=== PATIENT | female | born 1985 | race Caucasian/White ===

== ENCOUNTER → 2016-07-09 | Emergency (ER) | payer OTHER ==
--- NOTE | 2016-07-09 20:49 | ED NURSING NOTES ---
Clinical Report - Nurses [place] [address] [place] [address] 07/09/2016 19:32 Patient: ANGELICA DIEGO DISPOSITION / DISCHARGE ( multiple lobby checks, pt not found. chart found on medical receptionist biller counter.). --20:47 Emma Amanda R.N. The patient left the Emergency Department before triage. The patient did not notify the ED staff prior to leaving the department. --20:49 Emma Amanda R.N. Locked/Released at 07/09/2016 20:49 by Emma Amanda R.N.
--- NOTE | 2016-07-09 20:49 | ED CLINICAL REPORT ---
Clinical Report - Physicians/Mid Levels [facility] [address] [place] [address] 07/09/2016 19:32 Patient: ANGELICA DIEGO Time Seen: 19:49. HISTORY OF PRESENT ILLNESS (Not in ED WR at 19:49. Not seen by MD.). (Electronically signed by Js Rondon MD 07/11/2016 0:46)
--- NOTE | 2016-07-09 20:49 | ED NURSING NOTES ---
Clinical Report - Nurses [place] [address] [place] [address] 07/09/2016 19:32 Patient: ANGELICA DIEGO DISPOSITION / DISCHARGE ( multiple lobby checks, pt not found. 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 --20:47 Emma Amanda R.N. The patient left the Emergency Department before triage. The patient did not notify the ED staff prior to leaving the department. --20:49 Emma Amanda R.N. Locked/Released at 07/09/2016 20:49 by Emma Amanda R.N.
--- NOTE | 2016-07-09 20:49 | ED CLINICAL REPORT ---
Clinical Report - Physicians/Mid Levels [facility] [address] [place] [address] 07/09/2016 19:32 Patient: ANGELICA DIEGO Time Seen: 19:49. HISTORY OF PRESENT ILLNESS (Not in ED WR at 19:49. Not seen by MD.). (Electronically signed by Js Rondon MD 07/11/2016 0:46)
--- NOTE | 2016-07-11 00:46 | ED MED RECONCILIATION SUMMARY ---
Patient: ANGELICA DIEGO Medication Reconciliation Report [facility] VisitID: [id number] [address] [place] [address] 30y, F Registration Date/Time: 07/09/2016 Weight: (not available) Height/Length: (not available) BMI: (not available) ALLERGIES: The patient's Home Medications are listed below: Not obtained. The source(s) of the original Home Medication information: Not obtained. The following Medications were given to the patient in the Emergency Department: None. The following Medications were prescribed to the patient: None.
--- NOTE | 2016-07-11 00:46 | ED MAR SUMMARY ---
..... Medication Administration Record [facility] [address] [place] [id number] Patient: ANGELICA DIEGO Visit ID: [id number] 30y, F Weight: (not available) Height/Length: (not available) BMI: (not available) ALLERGIES:
--- NOTE | 2016-07-11 00:46 | ED MAR SUMMARY ---
..... Medication Administration Record [facility] [address] [place], [place] [id number] Patient: ANGELICA DIEGO Visit ID: [id number] 30y, F Weight: (not available) Height/Length: (not available) BMI: (not available) ALLERGIES:
--- NOTE | 2016-07-11 00:46 | ED MED RECONCILIATION SUMMARY ---
Patient: ANGELICA DIEGO Medication Reconciliation Report [facility] VisitID: [id number] [address] [place] [address] 30y, F Registration Date/Time: 07/09/2016 Weight: (not available) Height/Length: (not available) BMI: (not available) ALLERGIES: The patient's Home Medications are listed below: Not obtained. The source(s) of the original Home Medication information: Not obtained. The following Medications were given to the patient in the Emergency Department: None. The following Medications were prescribed to the patient: None.
== END | disposition left against medical advice (07) ==
LOC: EKG SRH 19:31
DX: Z53.21 Procedure and treatment not carried out due to patient leaving prior to being seen by health care provider (principal)